=== PATIENT | male | born 1980 | race Hispanic/Latino ===

== ENCOUNTER 2024-04-27 05:55 | Emergency (ER) | payer BC ==
[~2024-04-27] VITALS: Ht 165.1 cm; Wt 103.0 kg
[2024-04-27 06:01] VITALS: PULSE 70; RESP 18; TEMP 97.3
[2024-04-27] MEDS ORDERED: TYLENOL325 MG PO (07:11)
[2024-04-27] MEDS ORDERED: KETOROLAC TROME10 MG PO (07:11)
[2024-04-27] MEDS ORDERED: ONDANSETRON ODT4 MG PO (07:11)
[2024-04-27] MEDS: KETOROLAC TROMETHAMINE 30 MG/ML VIAL IV ONE ×2 (07:34→07:35)
[2024-04-27] MEDS: ONDANSETRON HCL INJ 2MG/ML 2ML 2 MG/ML VIAL IV ONE (07:36)
[2024-04-27] MEDS: ACETAMINOPHEN 325 MG TAB PO ONE (07:37)
[2024-04-27] MEDS: SODIUM CHLORIDE 0.9% 1000ML 1,000 ML IV SCH (07:44)
[2024-04-27 08:48] VITALS: BP 129/62; PULSE 71; RESP 18; TEMP 98.3; O2SAT 98
== END 2024-04-27 08:40 | disposition home or self-care (01) ==
LOC: FSED 06:16
DX: R31.9 Hematuria, unspecified (principal); N20.0 Calculus of kidney; R10.9 Unspecified abdominal pain
CPT/HCPCS: 74176; 80048; 81003; 85025; 96374; 99284; J1885; J2405; J7030